=== PATIENT | female | born 1995 | race Caucasian/White ===

== ENCOUNTER 2019-05-07 12:21 | Emergency (ER) | payer OTHER ==
[~2019-05-07] VITALS: Ht 144.8 cm; Wt 84.5 kg
[2019-05-07 12:23] VITALS: BP 121/64; PULSE 67; RESP 18; Ht 144.8 cm; Wt 84.5 kg
== END 2019-05-07 15:06 | disposition home or self-care (01) ==
LOC: E/R 12:21
DX: O26.891 Other specified pregnancy related conditions, first trimester (principal); R10.2 Pelvic and perineal pain; Z3A.13 13 weeks gestation of pregnancy
CPT/HCPCS: 76801; 81001; 81003; 84702; 85025; 86900; 86901